=== PATIENT | female | born 2000 | race Caucasian/White ===

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

== ENCOUNTER 2024-06-04 16:46 | Emergency (ER) | payer BC, OTHER ==
[2024-06-04 17:01] VITALS: RESP 18
[2024-06-04] MEDS: ACETAMINOPHEN TAB 500 MG TAB PO STA (17:59)
[2024-06-04] MEDS: MORPHINE SULFATE 2 MG/ML SYRINGE IM STA (18:00)
[2024-06-04] MEDS: LIDOCAINE 4% PATCH TOPICAL STA (18:02)
--- NOTE | 2024-06-04 18:13 | XR ---
EXAMINATION TYPE: XR ribs LT w pa chest xray DATE OF EXAM: 06/04/2024 5:56 PM COMPARISON: None CLINICAL INDICATION: Female, 24 years old with history of left rib pain. ; TECHNIQUE: XR ribs LT w pa chest xray; Frontal and oblique views of the ribs with frontal chest radio graph. FINDINGS/IMPRESSION: 1. Nondisplaced fracture of left rib 11 suggested with hairline fracture visualized. 2. Visualized chest and remainder of the ribs and spine appear unremarkable. [facility], , 06/04/2024 6:11 PM
--- NOTE | 2024-06-04 18:35 | ED ---
General Adult HPI - General Chief complaint: Shortness of Breath Stated complaint: 17 wks preg, abd pain Time Seen by Provider: 06/04/24 17:29 Source: patient, RN notes reviewed, old records reviewed Mode of arrival: ambulatory Limitations: no limitations - History of Present Illness Initial comments: Patient is a 24-year-old female presents emergency department complaining of left sided lateral rib pain. States she has been having left rib pain for multiple weeks. Has been having some nonspecific coughing with it. States she coughed approximately an hour ago and felt sudden worsening pain pinpoint over the left lateral lower rib. Pain with movement. She is concerned she may have broken a rib. No productive cough. No fevers. Patient is 17 weeks . She is G2, P1. No complications with this . No significant past medical history otherwise. Denies any other pain, nausea, vomiting, abdominal discomfort. Denies any vaginal bleeding or cramping. Presents over concern for rib injury. Denies any trauma. - Related Data Previous Rx's Medication Instructions Recorded Cyclobenzaprine [Flexeril] 5 mg PO BID PRN 14 Days #28 tablet 06/04/24 Lidocaine 5% Patch [Lidoderm 5% 1 patch TOPICAL DAILY PRN 14 Days 06/04/24 Patch] #14 patch Allergies Allergy/AdvReac Type Severity Reaction Status Date / Time No Known Allergies Allergy Verified 09/06/18 23:05 Review of Systems ROS Statement: Those systems with pertinent positive or pertinent negative responses have been documented in the HPI. Review of Systems: CONST: Denies fever EYES: Denies blurry vision ENT: Denies nasal congestion C/V: Denies Chest pain RESP: Denies shortness of breath GI: Denies abdominal pain : Denies dysuria SKIN: Denies rash. MSK: Endorses left rib pain NEURO: Denies headache ROS Other: All systems not noted in ROS Statement are negative. Past Medical History Past Medical History: No Reported History History of Any Multi-Drug Resistant Organisms: None Reported Past Surgical History: No Surgical Hx Reported Past Psychological History: No Psychological Hx Reported Smoking Status: Never smoker Past Alcohol Use History: None Reported Past Drug Use History: Marijuana General Exam - General Exam Comments Initial Comments: General: Appears in no acute distress. HEAD: Normal with no signs of head trauma. EYES: EOMI ENT: Hearing grossly intact, normal oropharynx. RESPIRATORY: Clear breath sounds bilaterally. No wheezes, rales, or rhonchi. No hypoxia. C/V: Regular rate and rhythm. S1 and S2 auscultated. Peripheral pulses 2+ intact throughout. ABD: Gravid uterus, abdomen is nontender to palpation. EXT: Normal range of motion, no obvious deformity. No flail chest. Patient does have point tenderness over the left lateral 11th rib. No obvious deformity palpated. No spine tenderness. SKIN: No rashes or lesions observed on exposed skin. NEURO: Alert and oriented x 4. Limitations: no limitations Course Vital Signs 06/04/24 06/04/24 16:58 17:18 Temperature 98.8 F Pulse Rate 106 H Respiratory 18 18 Rate Blood Pressure 122/78 O2 Sat by Pulse 100 Oximetry Medical Decision Making - Medical Decision Making Was pt. sent in by a medical professional or institution (, PA, APPLICATION SYSTEMS ADMINISTRATOR, urgent care, hospital, or fpc...) When possible be specific @ -No Did you speak to anyone other than the patient for history (EMS, parent, family, police, friend...)? What history was obtained from this source @ -No Did you review nursing and triage notes (agree or disagree)? Why? @ -I reviewed and agree with nursing and triage notes Were old charts reviewed (outside hosp., previous admission, EMS record, old EKG, old radiological studies, urgent care reports/EKG's, fpc records)? Report findings @ -No old charts were reviewed Differential Diagnosis (chest pain, altered mental status, abdominal pain women, abdominal pain men, vaginal bleeding, weakness, fever, dyspnea, syncope, headache, dizziness, GI bleed, back pain, seizure, CVA, palpatations, mental health, musculoskeletal)? @ -Rib fracture, pneumonia, pneumothorax, rib contusion. This list is not all inclusive. EKG interpreted by me (3pts min.). @ -None done X-rays interpreted by me (1pt min.). @ -Chest x-ray reveals nondisplaced hairline fracture of the left lateral rib #11. No evidence of pneumothorax. CT interpreted by me (1pt min.). @ -None done U/S interpreted by me (1pt. min.). @ -None done What testing was considered but not performed or refused? (CT, X-rays, U/S, labs)? Why? @ -None What meds were considered but not given or refused? Why? @ -None Did you discuss the management of the patient with other professionals (professionals i.e. , PA, APPLICATION SYSTEMS ADMINISTRATOR, lab, RT, psych nurse, manager social work, caregivers homecare, teacher, licensed mortgage loan officer, case resource manager)? Give summary @ -No Was smoking cessation discussed for >3mins.? @ -No Was critical care preformed (if so, how long)? @ -No Were there social determinants of health that impacted care today? How? (Homelessness, low income, unemployed, alcoholism, drug addiction, transportation, low edu. Level, literacy, decrease access to med. care, prison, rehab)? @ -No Was there de-escalation of care discussed even if they declined (Discuss DNR or withdrawal of care, Hospice)? DNR status @ -No What co-morbidities impacted this encounter? (DM, HTN, Smoking, COPD, CAD, Cancer, CVA, ARF, Chemo, Hep., AIDS, mental health diagnosis, sleep apnea, morbid obesity)? @ -None Was patient admitted / discharged? Hospital course, mention meds given and route, prescriptions, significant lab abnormalities, going to OR and other pertinent info. @ -Patient presents with left rib pain for 2 weeks with sudden onset worsening with a cough. Thought it was originally just a muscle strain but think she may have broken a rib. No obvious trauma. She is 17 weeks with no complaints. We will have OB perform heart tones. This was done and they are within normal limits, in the 150s.. We will obtain chest x-ray and patient will be administered IM morphine, lidocaine patch, Tylenol. Vitals are within acceptable limits. She was in agreement this plan. We did discuss at length the category of all 3 medications we provided with. She did consent to all of them. She understands that morphine is category C. She understands that lidocaine patch and Tylenol are category B. Chest x-ray does reveal a hairline fracture of the left lateral 11th rib. No evidence of pneumonia or pneumothorax. discussed results with patient. She will be given an incentive spirometer as well as prescription for lidocaine patches and Flexeril. Discussed signs and symptoms of pneumonia as reasons to return to the emergency department. Recommended follow-up with your PCP in the next 1 to 3 days. She was in agreement this plan. She is given a work note. She understands she has a hairline fracture of the left lateral rib. No concern for flail chest. I will provide the patient with a prescription for Flexeril, lidocaine patch. I instructed the patient to follow up with their PCP in the next 1-3 days. I explained that the patient should return to the emergency department if they experience any worsening symptoms. Strict return precautions were discussed with the patient. The patient expressed understanding of these instructions. I answered all questions that the patient had. The patient was discharged home in fair condition with their prescriptions and follow up information. Undiagnosed new problem with uncertain prognosis? @ -No Drug Therapy requiring intensive monitoring for toxicity (Heparin, Nitro, Insulin, Cardizem)? @ -No Were any procedures done? @ -No Diagnosis/symptom? @ -Left 11th rib hairline fracture Acute, or Chronic, or Acute on Chronic? @ -Acute Uncomplicated (without systemic symptoms) or Complicated (systemic symptoms)? @ -Uncomplicated Side effects of treatment? @ -No Exacerbation, Progression, or Severe Exacerbation? @ -No Poses a threat to life or bodily function? How? (Chest pain, [place], [place], pneumonia, PE, COPD, DKA, ARF, appy, cholecystitis, CVA, Diverticulitis, Homicidal, Suicidal, threat to staff... and all critical care pts) @ -Unlikely at this time Disposition Clinical Impression: Rib fracture Disposition: HOME SELF-CARE Condition: Fair Instructions (If sedation given, give patient instructions): How to Use an Incentive Spirometer (ED), Rib Fracture (ED) Prescriptions: Cyclobenzaprine [Flexeril] 5 mg PO BID PRN 14 Days #28 tablet PRN Reason: Pain Lidocaine 5% Patch [Lidoderm 5% Patch] 1 patch TOPICAL DAILY PRN 14 Days #14 patch PRN Reason: Pain Is patient prescribed a controlled substance at d/c from ED?: No Referrals: None,Stated [Primary Care Provider] - 1-2 days Forms: Area PCPs Time of Disposition: 18:35
[2024-06-04 18:53] VITALS: BP 107/68; PULSE 86; TEMP 98.6
== END 2024-06-04 19:49 | disposition home or self-care (01) ==
LOC: EC 16:46
DX: O9A.212 Injury, poisoning and certain other consequences of external causes complicating pregnancy, second trimester (principal); S22.32XA Fracture of one rib, left side, initial encounter for closed fracture; Z3A.17 17 weeks gestation of pregnancy; X58.XXXA Exposure to other specified factors, initial encounter
CPT/HCPCS: 71101; 99285; 96372; J2270

== ENCOUNTER 2024-10-24 12:00 | Outpatient (CLI) | payer OTHER ==
[2024-10-24 12:53] VITALS: BP 128/69; PULSE 99; RESP 18; TEMP 97.3
--- NOTE | 2024-11-12 10:00 | P.MSEPDOC ---
Presenting Problems - Arrival Data Date of Arrival on Unit: 10/24/24 Time of Arrival on Unit: 12:00 Mode of Transport: Ambulatory - Complaint OB-Reason for Admission/Chief Complaint: Rule Out SROM Comment: Pt presents to triage c/o cramping and subrapubic pain. Pt states she has been having cramping for several days, worsening today. Pt states she also had some fluid leakage after urinating at approx 1130 today. Pt states intercourse last night. Medical History - Information : 2 Para: 1 Term: 1 Number of Living Children: 1 - Gestational Age Gestational Age by DANG (wks/days): 37 Weeks and 3 Days Review of Systems - Review of Systems Constitutional: No problems Breast: No problems ENT: No problems Cardiovascular: No problems Respiratory: No problems Gastrointestinal: No problems Genitourinary: No problems Musculoskeletal: No problems Neurological: No problems Skin: No problems Vital Signs - Temperature Temperature: 97.3 F Temperature Source: Temporal Artery Scan - Pulse Right Sitting Brachial Pulse Rate: 99 Pulse Assessment Method: Automatic Cuff - Respirations Respiratory Rate: 18 Oxygen Delivery Method: Room Air O2 Sat by Pulse Oximetry: 99 - Blood Pressure Right Arm Sitting Blood Pressure: 128/69 Blood Pressure Mean: 88 Blood Pressure Source: Automatic Cuff Medical Screen Scoring - Cervical Exam Dilation (cm): 1 Effacement (%): 50 Station: -3 Membranes: Intact - Uterine Contractions Intensity: Mild Resting: Soft to palpation - Assessment - Baby A Baseline FHR: 140 Heart Rate - NICHD Category: Category I (Normal) NST: Reactive Physician Notification - Physician Notified Physician Notified Date: 10/24/24 Physician Notified Time: 12:38 Physician: Teresita Monaco New Order Received: Yes - Notification Comment Comment: Spk c\Dr. Monaco, aware of pt, advsd 37.3, to triage following fluid leaking after urinating at 1130 today x 1, no continued leaking, intercourse last night, amnisure negative. 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 FHT Cat 1, reactice NST. Order rec'd to or home, follow up as scheduled. Maternal Triage Index - Maternal Triage Index Presenting for scheduled procedure w/no complaint: No - Stat/Priority 1 Stat Priority 1: No - Urgent/Priority 2 Urgent Priority 2: No - Prompt/Priority 3 Prompt Priority 3: Yes Criteria Met for Priority 3: R/O SROM Disposition - Disposition OB Disposition: Discharge to home, Written follow up instructions reviewed Discharge Date: 10/24/24 Discharge Time: 12:45 I agree with the RN Medical Screening Exam: Yes Case reviewed; plan agreed upon as documented in EMR&OBIX.: Yes Diagnosis: RELATED CONDITIONS, UNSPECIFIED, THIRD TRIMESTER
== END 2024-10-24 12:45 | disposition home or self-care (01) ==
LOC: FBPOP 12:00
PROVIDERS: ATTEND Obstetrics & Gynecology Obstetrics
DX: O26.893 Other specified pregnancy related conditions, third trimester (principal); Z3A.37 37 weeks gestation of pregnancy
CPT/HCPCS: 59025; G0463; 99213

== ENCOUNTER 2024-11-04 06:15 | Inpatient (IN) | payer OTHER ==
[2024-11-04] MEDS ORDERED: METHYLERGONOVINE 0.2 MG/ML 1 ML AMP IM PRN (08:42)
[2024-11-04] MEDS ORDERED: LIDOCAINE 0.5% (PF) 5 MG/ML (50 ML SDV) SQ PRN (08:42)
[2024-11-04] MEDS ORDERED: CARBOPROST TROMETHAMINE 250 MCG/ML 1 ML AMP IM PRN (08:42)
[2024-11-04] MEDS ORDERED: TERBUTALINE 1 MG/ML VIAL SQ PRN (08:42)
[2024-11-04] MEDS ORDERED: TRANEXAMIC 1,000 MG/100ML-NACL 1,000 MG in EMPTY BAG 1 BAG IV PRN (08:42)
[2024-11-04] MEDS ORDERED: miSOPROStoL 200 MCG TAB RECTAL PRN (08:42)
[2024-11-04] MEDS ORDERED: miSOPROStoL 200 MCG TAB PO PRN (08:42)
[2024-11-04] MEDS ORDERED: OXYTOCIN 10 UNIT/ML 1 ML VIAL IM PRN (08:42)
[2024-11-04 09:35] LABS: Basophils # (A) 0.03 10*3/uL (0.00-0.10); Basophils % (A) 0.2 %; Eosinophils # (A) 0.09 10*3/uL (0.04-0.35); Eosinophils % (A) 0.7 %; HGB 9.2 g/dL (12.0-15.0); Immature Platelet Fraction 2.6 % (1.1-6.1); Lymphocytes # (A) 1.39 10*3/uL (0.90-5.00); MCH 26.8 pg (27.0-32.0); MCHC 32.9 g/dL (32.0-37.0); MCV 81.6 fL (80.0-97.0); Mean Platelet Volume 10.4 fL (9.5-12.2); Monocytes # (A) 1.03 10*3/uL (0.20-1.00); Monocytes % (A) 8.2 %; Neutrophils # (A) 9.69 10*3/uL (1.80-7.70); Neutrophils % (A) 77.1 %; RBC 3.43 10*6/uL (4.10-5.20); RDW 13.7 % (11.5-14.5); WBC 12.58 10*3/uL (4.50-10.00)
[2024-11-04] MEDS: LACTATED RINGERS 1,000 ML IV SCH (09:45)
[2024-11-04] MEDS: OXYTOCIN 30 UNITS/500 ML NS 30 UNIT in SALINE 1 500ML.BAG IV SCH (09:46)
[2024-11-04 10:41] LABS: RBC Morphology Normal
[2024-11-04 10:42] LABS: Platelet Count 400 10*3/uL (140-440)
--- NOTE | 2024-11-04 13:32 | P.HPOB ---
History of Present Illness H&P Date: 11/04/24 Chief Complaint: IUP at 39 and 0/7 weeks This is a 24-year-old 2 para 1001 at 39-0/7 weeks that presents to labor and delivery for induction of labor. Patient has been receiving routine care which has been essentially uncomplicated. Patient notes good feta l movement denies vaginal bleeding loss of fluid or contractions. On blood work this patient has a blood type of A negative, rubella status immune, RPR is nonreactive, hepatitis B surface engine negative, grew beta strep culture negative. Review of Systems Constitutional: Denies chills, Denies fatigue, Denies fever Ears, nose, mouth and throat: Denies headache Cardiovascular: Reports leg edema Respiratory: Denies dyspnea Gastrointestinal: Denies nausea, Denies vomiting Genitourinary: Reports Past Medical History Past Medical History: No Reported History History of Any Multi-Drug Resistant Organisms: None Reported Past Surgical History: No Surgical Hx Reported Past Anesthesia/Blood Transfusion Reactions: No Reported Reaction Past Psychological History: No Psychological Hx Reported Smoking Status: Never smoker Past Alcohol Use History: None Reported Past Drug Use History: Marijuana - Past Family History Mother Family Medical History: No Reported History Medications and Allergies Home Medications Medication Instructions Recorded Confirmed Type Vit No.179/Iron/Folic 1 each PO DAILY 10/24/24 11/04/24 History [ Tablet] Allergies Allergy/AdvReac Type Severity Reaction Status Date / Time No Known Allergies Allergy Verified 11/04/24 08:41 Exam Osteopathic Statement: *. No significant issues noted on an osteopathic structural exam other than those noted in the History and Physical/Consult. Vital Signs Temp Pulse Resp BP 11/04/24 08:41 97.9 F 86 16 123/70 Intake and Output 11/03/24 11/04/24 11/04/24 22:59 06:59 14:59 Other: Weight 83.915 kg Targeted physical exam is performed this date in general is well-nourished well- developed female in no acute distress, breathing is nonlabored, heart has a regular rate and rhythm, abdomen is gravid and appropriate for gestational age, on cervical exam she is 470-2, amniotomy is performed and clear fluid is obtained. heart tones are noted to be category 1 and she is dev irregularly Results Result Diagrams: 11/04/24 09:15 Abnormal Lab Results - Last 24 Hours (Table) 11/04/24 Range/Units 09:15 WBC 12.58 H (4.50-10.00) 10*3/uL RBC 3.43 L (4.10-5.20) 10*6/uL Hgb 9.2 L (12.0-15.0) g/dL Hct 28.0 L (37.2-46.3) % MCH 26.8 L (27.0-32.0) pg Immature Gran # 0.35 H (0.00-0.04) 10*3/uL Neutrophils # 9.69 H (1.80-7.70) 10*3/uL Monocytes # 1.03 H (0.20-1.00) 10*3/uL Assessment and Plan (1) Term Current Visit: Yes Status: Acute Code(s): Z34.90 - ENCNTR FOR SUPRVSN OF NORMAL , UNSP, UNSP TRIMESTER SNOMED Code(s): 75331904 Plan: Admit to labor and delivery Pitocin induction of labor per protocol Options for analgesia are discussed including Nubain, nitrous, epidural. Patient will decide Anticipate spontaneous vaginal delivery
[2024-11-04] MEDS ORDERED: BENZOCAINE/MENTHOL SPRAY 1 GM/SPRAY AEROSOL TOPICAL PRN (20:22)
[2024-11-04] MEDS ORDERED: diphenhydrAMINE 25 MG CAP PO PRN (20:22)
[2024-11-04] MEDS ORDERED: LANOLIN CREAM 1 GM TUBE TOPICAL PRN (20:22)
[2024-11-04] MEDS ORDERED: ZOLPIDEM 5 MG TAB PO PRN (20:22)
[2024-11-04] MEDS ORDERED: diphenhydrAMINE 50 MG/ML 1 ML VIAL IVP PRN ×2 (20:22)
[2024-11-04] MEDS ORDERED: HYDROCORTISONE 2.5% RECTAL CREAM 30 GM TUBE RECTAL PRN (20:22)
[2024-11-04] MEDS ORDERED: diphenhydrAMINE 50 MG CAP PO PRN (20:22)
[2024-11-04] MEDS ORDERED: SIMETHICONE 80 MG CHEWABLE PO PRN (20:22)
--- NOTE | 2024-11-04 20:26 | P.PROBDLV ---
Vaginal Delivery Note - . Vaginal Delivery Note: Date of service 11/04/2024 Findings viable female delivered at 1936, weight of 8 pounds 11.9 ounces This is a 24-year-old 2 para 1 at 39-0/7 weeks that presented to labor and delivery for induction of labor. Patient was admitted and Pitocin induction of labor was begun. Amniotomy was performed and clear fluid was obtained. Patient progressed through labor becoming uncomfortable and requesting epidural. Epidural was placed without difficulty by the anesthesia department. Patient made good progress toward complete dilation once completely dilated patient began pushing and had a normal spontaneous vaginal delivery of a viable female at 1936, weight of 8 pounds 11 ounces, Apgars of 9 and 9 at 1 and 5 minutes respectively. After 2-minute delay the umbilical cord was doubly clamped and cut. Send was delivered spontaneously intact with a three-vessel cord being noted. On inspection of patient's vaginal vault no lacerations were appreciated. Uterus was noted to be firm and below the umbilicus. All counts were noted be correct x 2 at the end of the delivery. Patient and tolerated delivery well and are resting comfortably. EBL 200
[2024-11-04] MEDS: ACETAMINOPHEN TAB 500 MG TAB PO SCH (20:31)
[2024-11-04] MEDS: IBUPROFEN 800 MG TAB PO SCH (22:04)
[2024-11-05 00:08] VITALS: RESP 16
[2024-11-05 07:17] LABS: Basophils # (A) 0.05 10*3/uL (0.00-0.10); Basophils % (A) 0.4 %; Eosinophils # (A) 0.14 10*3/uL (0.04-0.35); HCT 25.1 % (37.2-46.3); HGB 7.9 g/dL (12.0-15.0); Lymphocytes # (A) 1.39 10*3/uL (0.90-5.00); Lymphocytes % (A) 9.8 %; MCH 26.2 pg (27.0-32.0); MCHC 31.5 g/dL (32.0-37.0); MCV 83.1 fL (80.0-97.0); Mean Platelet Volume 9.6 fL (9.5-12.2); Monocytes # (A) 1.38 10*3/uL (0.20-1.00); Monocytes % (A) 9.8 %; Neutrophils # (A) 10.93 10*3/uL (1.80-7.70); Neutrophils % (A) 77.4 %; Platelet Count 346 10*3/uL (140-440); RBC 3.02 10*6/uL (4.10-5.20); RDW 13.9 % (11.5-14.5); WBC 14.12 10*3/uL (4.50-10.00)
[2024-11-05] MEDS: SENNOSIDES-DOCUSATE SODIUM 1 EACH TAB PO SCH (07:55)
--- NOTE | 2024-11-05 09:50 | P.DS ---
Providers Date of admission: 11/04/24 08:40 Expected date of discharge: 11/05/24 Attending physician: Teresita Monaco Primary care physician: Stated None - Discharge Diagnosis(es) (1) Term Current Visit: Yes Status: Acute (2) Status post normal vaginal delivery Current Visit: Yes Status: Acute Hospital Course: This is a 24-year-old 2 now para 2 that presented to labor and delivery on 11/04 for scheduled induction of labor. Patient has been recent receiving routine care, for full details see the dictated history and physical. patient was admitted to labor and delivery and Pitocin induction of labor was begun. Amniotomy was performed and clear fluid was obtained. Patient did request epidural. Epidural was placed without difficulty by the anesthesia department. Patient progressed to complete began pushing and had a normal spontaneous vaginal delivery of a viable female at 1936, weight of 8 pounds 11.9 ounces, Apgars of 8 and 9 at 1 and 5 minutes respectively. No vaginal lacerations were appreciated after the delivery. Patient's course has been uneventful. On this day #1 she is ambulating and voiding without difficulty. She is tolerating a regular diet without nausea or vomiting. States her pain is well-controlled. She would like discharge home later today. Patient Condition at Discharge: Good Plan - Discharge Summary New Discharge Prescriptions: No Action Vit No.179/Iron/Folic [ Tablet] 1 each PO DAILY Discharge Medication List Vit No.179/Iron/Folic [ Tablet] 1 each PO DAILY 10/24/24 [History] Follow up Appointment(s)/Referral(s): Teresita Monaco DO [Doctor of Osteopathic Medicine] - 6 Weeks Patient Instructions/Handouts: Vaginal Delivery (DC), Vaginal Delivery (GEN) Activity/Diet/Wound Care/Special Instructions: No tub baths or intercourse until 6 weeks . [id number] ibu profen 600 mg or 3 tablets every 6 hours as needed for pain. Routine check at 6 weeks. Should she have any concerns prior to this appointment she is urged to call the office and be seen sooner Discharge Disposition: HOME SELF-CARE
[2024-11-05 16:24] VITALS: BP 116/70; PULSE 87; TEMP 98.3
== END 2024-11-05 20:43 | disposition home or self-care (01) | DRG 560 ==
LOC: 4FBP 08:40
PROVIDERS: ADMIT Obstetrics & Gynecology Obstetrics; ATTEND Obstetrics & Gynecology Obstetrics
PROC: 3E033VJ Introduction of Other Hormone into Peripheral Vein, Percutaneous Approach (ICD-10-PCS; principal; 2024-11-04)
PROC: 10E0XZZ Delivery of Products of Conception, External Approach (ICD-10-PCS; principal; 2024-11-04)
PROC: 10907ZC Drainage of Amniotic Fluid, Therapeutic from Products of Conception, Via Natural or Artificial Opening (ICD-10-PCS; principal; 2024-11-04)
DX: O80 Encounter for full-term uncomplicated delivery (principal); Z3A.39 39 weeks gestation of pregnancy; Z37.0 Single live birth
CPT/HCPCS: 85025; 86850; 86900; 86901

== ENCOUNTER 2024-12-20 15:30 | Emergency (ER) | payer OTHER ==
[2024-12-20 15:38] VITALS: BP 96/65; PULSE 103; RESP 16; TEMP 98.7
--- NOTE | 2024-12-20 16:54 | ED ---
General Adult HPI - General Chief complaint: Skin/Abscess/Foreign Body Stated complaint: Lump on Chest Time Seen by Provider: 12/20/24 15:58 Source: patient, family, RN notes reviewed, old records reviewed Mode of arrival: ambulatory Limitations: no limitations - History of Present Illness Initial comments: 24-year-old female presents with complaints of central chest lump. States she has had a bump in the middle of her chest for approximately a year, states it is usually around the size of a nickel or quarter, but in the last week it has become inflamed tender fluctuant and increased in size significantly. Denies any drainage from lump, fevers, headache, chest pain, shortness of breath, palpitations. - Related Data Home Medications Medication Instructions Recorded Confirmed Vit No.179/Iron/Folic 1 each PO DAILY 10/24/24 11/04/24 [ Tablet] Previous Rx's Medication Instructions Recorded Cephalexin [Keflex] 500 mg PO Q8HR 7 Days #21 cap 12/20/24 Allergies Allergy/AdvReac Type Severity Reaction Status Date / Time No Known Allergies Allergy Verified 12/20/24 15:38 Review of Systems ROS Statement: Those systems with pertinent positive or pertinent negative responses have been documented in the HPI. ROS Other: All systems not noted in ROS Statement are negative. Past Medical History Past Medical History: No Reported History History of Any Multi-Drug Resistant Organisms: None Reported Past Surgical History: No Surgical Hx Reported Past Anesthesia/Blood Transfusion Reactions: No Reported Reaction Past Psychological History: No Psychological Hx Reported Smoking Status: Never smoker Past Alcohol Use History: None Reported Past Drug Use History: Marijuana - Past Family History Mother Family Medical History: No Reported History General Exam - General Exam Comments Initial Comments: GENERAL: This is a -year-old in no apparent distress at the time of examination. Pleasant and cooperative. HEENT: Head is atraumatic, normocephalic. Pupils are equal, round, and reactive to light. Sclerae anicteric. Conjunctivae are clear. Mucus membranes of the mouth are moist. Neck is supple. RESPIRATORY: Clear to auscultation. No wheezes, rales, or rhonchi. No use of accessory muscles. Patient maintaining oxygen saturation greater than 92%. No chest wall tenderness is noted on palpation or with deep breathing. CARDIOVASCULAR: Regular rate and rhythm. S1 and S2 noted. No systolic or diastolic murmur auscultated. No JVD noted. No S3 or S4 noted. INTEGUMENTARY: On the central part of the sternum there is a erythematous, fluctuant, tender superficial mass approximately 3 x 3 cm in diameter PSYCHIATRIC: Awake, alert, and oriented X 3. Appropriate affect. Intact judgement and insight. Limitations: no limitations Course Vital Signs 12/20/24 15:36 Temperature 98.7 F Pulse Rate 103 H Respiratory 16 Rate Blood Pressure 96/65 O2 Sat by Pulse 97 Oximetry Medical Decision Making - Medical Decision Making Was pt. sent in by a medical professional or institution (, [facility], [employer], urgent care, hospital, or detention...) When possible be specific @ -[No] Did you speak to anyone other than the patient for history (EMS, parent, family, police, friend...)? What history was obtained from this source @ -[No] Did you review nursing and triage notes (agree or disagree)? Why? @ -[I reviewed and agree with nursing and triage notes] Were old charts reviewed (outside hosp., previous admission, EMS record, old EKG, old radiological studies, urgent care reports/EKG's, detention records)? Report findings @ -[No old charts were reviewed] Differential Diagnosis? @ -[chest pain, altered mental status, abdominal pain women, abdominal pain men, vaginal bleeding, weakness, fever, dyspnea, syncope, headache, dizziness, GI bleed, back pain, seizure, CVA, palpatations, mental health, musculoskeletal] EKG interpreted by me (3pts min.). @ -[As above] X-rays interpreted by me (1pt min.). @ -[None done] CT interpreted by me (1pt min.). @ -[None done] U/S interpreted by me (1pt. min.). @ -[None done] What testing was considered but not performed or refused? (CT, X-rays, U/S, labs)? Why? @ -[None] What meds were considered but not given or refused? Why? @ -[None] Did you discuss the management of the patient with other professionals (professionals i.e. , [facility], [employer], lab, RT, psych nurse, clinical social work therapist, banquet prep cook, teacher, assignment officer, caser shoe parts)? Give summary @ -[No] Was smoking cessation discussed for >3mins.? @ -[No] Was critical care preformed (if so, how long)? @ -[No] Were there social determinants of health that impacted care today? How? (Homelessness, low income, unemployed, alcoholism, drug addiction, transportation, low edu. Level, literacy, decrease access to med. care, long term, rehab)? @ -[No] Was there de-escalation of care discussed even if they declined (Discuss DNR or withdrawal of care, Hospice)? DNR status @ -[No] What co-morbidities impacted this encounter? (DM, HTN, Smoking, COPD, CAD, Cancer, CVA, ARF, Chemo, Hep., AIDS, mental health diagnosis, sleep apnea, morbid obesity)? @ -[None] Was patient admitted / discharged? Hospital course, mention meds given and route, prescriptions, significant lab abnormalities, going to OR and other pertinent info. @ -[hospital course] Undiagnosed new problem with uncertain prognosis? @ -[No] Drug Therapy requiring intensive monitoring for toxicity (Heparin, Nitro, Insulin, Cardizem)? @ -[No] Were any procedures done? @ -[No] Diagnosis/symptom? @ -[default] Acute, or Chronic, or Acute on Chronic? @ -[default] Uncomplicated (without systemic symptoms) or Complicated (systemic symptoms)? @ -[default] Side effects of treatment? @ -[No] Exacerbation, Progression, or Severe Exacerbation? @ -[No] Poses a threat to life or bodily function? How? (Chest pain, [place], [place], pneumonia, PE, COPD, DKA, ARF, appy, cholecystitis, CVA, Diverticulitis, Homicidal, Suicidal, threat to staff... and all critical care pts) @ -[No] Disposition Clinical Impression: Abscess Disposition: HOME SELF-CARE Condition: Fair Instructions (If sedation given, give patient instructions): Abscess Incision and Drainage (ED) Prescriptions: Cephalexin [Keflex] 500 mg PO Q8HR 7 Days #21 cap Is patient prescribed a controlled substance at d/c from ED?: No Referrals: [facility] [NON-STAFF] - 1-2 days [facility] [NON-STAFF] - 1-2 days (Contact a primary care office to become established with a provider. ) None,Stated [Primary Care Provider] - 1-2 days Forms: [facility] PC[facility]
[2024-12-20] MEDS: LIDOCAINE 1% INJ 10MG/ML (20 ML MDV) SQ ONE (16:55)
== END 2024-12-20 17:49 | disposition home or self-care (01) ==
LOC: EC 15:30
DX: J86.9 Pyothorax without fistula (principal)
CPT/HCPCS: 87070; 87205; 87075; 99282; J2003